=== PATIENT | male | born 1965 | race Caucasian/White ===

== ENCOUNTER 2016-08-05 12:02 | Emergency (ER) | payer OTHER ==
[~2016-08-05 12:02] MED LIST: CELE40TA; Celexa; GEOD20CA14; Geodon; KLON0.5T; PLAV75TA2; ZOCO40TA; klonopin; trazodone; zocor
[2016-08-05] MEDS ORDERED: ONDANSETRON 4MG/2ML VIAL (J2405) As Ordered ONE (12:54)
[2016-08-05] MEDS ORDERED: GASTROGRAFIN SOLUTION 30ML (Q9963) As Ordered ONE (12:54)
[2016-08-05] MEDS ORDERED: MORPHINE 4 MG/ML 1ML SYRINGE As Ordered ONE ×2 (12:55→15:24)
--- NOTE | 2016-08-05 13:19 | REP ---
Portable chest x-ray: Sitting AP view. History: Chest pain. Comparison chest x-ray July 26, 2014. Findings: The lungs are well inflated and clear. Heart is not enlarged. Pulmonary vasculature is not increased. Pleural angles are sharp. No significant bony abnormality is seen. Impression: Negative portable chest x-ray. Signed by Brian Montano MD 08/05/2016 01:57 P
[2016-08-05 13:47] LABS: ALBUMIN 4.1 GM/DL (3.2-5.2); ALBUMIN/GLOBULIN RATIO 1.08 (1.00-1.93); ALKALINE PHOSPHATASE 58 U/L (45-117); ALT/SGPT 31 U/L (12-78); ANION GAP 8 MEQ/L (8-16); AST/SGOT 12 U/L (15-37); BILIRUBIN,DIRECT 0.1 MG/DL (0.0-0.2); BILIRUBIN,TOTAL 0.9 MG/DL (0.2-1.0); BLOOD UREA NITROGEN 18 MG/DL (7-18); CARBON DIOXIDE LEVEL 22 MEQ/L (21-32); CHLORIDE LEVEL 110 MEQ/L (98-107); CREATININE FOR GFR 1.32 MG/DL (0.70-1.30); GLOMERULAR FILTRATION RATE > 60.0 (>56); GLUCOSE, FASTING 184 MG/DL (70-105); POTASSIUM SERUM 4.6 MEQ/L (3.5-5.1); SODIUM LEVEL 140 MEQ/L (136-145); TOTAL PROTEIN 7.9 GM/DL (6.4-8.2)
[2016-08-05] MEDS ORDERED: ISOVUE-370 76% 100ML VIAL (Q9967) As Ordered ONE (14:26)
[2016-08-05 14:55] LABS: BASO % 0.1 % (0.0-1.0); EOS % 0.1 % (0.0-3.0); LARGE UNSTAINED CELL # 0.1 K/mm3 (0.0-0.4); LARGE UNSTAINED CELL % 0.4 % (0.0-4.0); LYMPH # 0.3 K/mm3 (1.5-4.5); MEAN CORPUSCULAR HEMOGLOBIN 31.1 pg (27.0-33.0); MEAN CORPUSCULAR HGB CONC 33.7 g/dl (32.0-36.5); MEAN CORPUSCULAR VOLUME 92.1 fl (80.0-96.0); MONO # 0.3 K/mm3 (0.0-0.8); MONO % 2.5 % (0.0-5.0); NEUTROPHILS # 12.7 K/mm3 (1.8-7.7); NEUTROPHILS % 94.8 % (36.0-66.0); PLATELET COUNT, AUTOMATED 199 k/mm3 (150-450); RED CELL DISTRIBUTION WIDTH 12.2 % (11.5-14.5); WHITE BLOOD COUNT 13.4 K/mm3 (4.0-10.0)
--- NOTE | 2016-08-05 15:08 | REP ---
CT STUDY OF THE ABDOMEN AND PELVIS WITH IV AND ORAL CONTRAST: HISTORY: Abdominal pain. CT contrast dose: 100 mL of Isovue [address] FINDINGS: Digital preliminary load checker radiograph is unremarkable. The lung bases are clear. There is evidence of mild diffuse fatty infiltration of the liver. There is a tiny, 9 mm cyst in the dome of the right lobe of the liver. There is also a hypervascular lesion just beneath the liver capsule in the dome of the right lobe measuring 6 mm in diameter consistent with a hemangioma. No other focal liver lesion is seen. There is some fat sparing near the gallbladder. The spleen is unremarkable. No adrenal lesion is seen on either side. The pancreas shows no abnormality. No gallbladder abnormality is appreciated. The kidneys enhance symmetrically are morphologically intact. Normal caliber aorta is seen. No retroperitoneal mass or adenopathy is seen. A normal appendix is visible retrocecal. Small and large intestinal bowel loops are unremarkable. There is one dystrophic calcification in the prostate. Seminal vesicles and urinary bladder are unremarkable. No pelvic mass or adenopathy is seen. No abdominal wall defect is appreciated. Fairly heavy vascular calcification is seen. IMPRESSION: 1. Mild fatty infiltration of the liver. 2. Normal appendix. 3. Otherwise unremarkable CT abdomen and pelvis. Signed by Brian Montano MD 08/05/2016 03:59 P
--- NOTE | 2016-08-05 16:24 | EDDOCDS ---
Physician Documentation [facility] Name: Chencho Quinn Age: 50 yrs Sex: Male : 1965 Arrival Date: 08/05/2016 Time: 12:02 Bed 12 Private MD: Javier [facility] Disposition: 08/05/16 16:06 Discharged to Home/Self Care. Impression: Abdominal and pelvic pain, Nausea and vomiting. - Condition is Stable. - Discharge Instructions: Abdominal Pain, Adult, Diarrhea, Nausea and Vomiting. - Prescriptions for ZOFRAN ODT 4 mg - dissolve 1 tablet by ORAL route 4 times per day As needed do not chew, do not swallow whole; 10 tablet. - Work Release Form - 2 day, Medication Reconciliation, Local Pharmacy Hours form. - Follow up: [facility] Javier; When: 2 - 3 days; Reason: Recheck today's complaints. - Problem is new. - Symptoms have improved. - Notes: You were seen in the ED for abdominal pain, nausea, vomiting, and diarrhea. Bloodwork along with EKG of the heart and chest Xray showed no acute findings. CT scan of the abdomen showed fatty liver but no acute findings as well. As you are feeling better you may return home. Continue Tylenol and Ibuprofen as needed for pain and Zofran as needed for nausea. Encourage plenty of clear liquids, then advance your diet as tolerated. Call your doctor to arrange to be seen for a recheck this week as well.
Return to the ED for any worsening pain, fever, inability to tolerate oral foods or liquids, blood in the stool or vomit or any other concerns. Historical: - Allergies: No known drug Allergies; - Home Meds: 1. none - PMHx: CVA; - PSHx: none; - Social history: Smoking status: Patient uses tobacco products, heavy tobacco smoker. No barriers to communication noted, The patient speaks fluent Sami. - Family history: Not pertinent. - : The pt / caregiver states he / she is not on anticoagulants. Home medication list is obtained from the patient. - Exposure Risk Screening:: Recent exposure to and child are sick with the same symptoms. Vital Signs: 08/05 12:04 BP 131 / 101; Pulse 91; Resp 18; Temp 98.1(O); Pulse Ox 97% on R/A; Weight 99.79 kg / elp 220 lbs (R); Height 5 ft. 8 in. (172.72 cm) (R); 13:23 BP 113 / 63; Pulse 100; Resp 16; Temp 98.9(O); Pain 2/10; kr3 13:35 Pain 2/10; kr3 13:51 BP 107 / 60 (auto/); kr3 13:51 Pulse 104 MON; kr3 15:21 BP 123 / 74 (auto/); ld5 15:21 Pulse 106 MON; ld5 15:51 BP 126 / 76 (auto/); kr3 15:51 Pulse 114 MON; kr3 16:02 Pain 1/10; kr3 16:23 Temp 100(O); kr3 12:04 Body Mass Index 33.45 (99.79 kg, 172.72 cm) elp MDM: 12:43 IV Saline Lock ordered. br1 12:43 Tinning Equipment Tender/Pulse Ox/q 30 min VS ordered. br1 12:44 CBC with Diff Ordered. EDMS 12:44 BMP Ordered. EDMS 12:44 Liver Profile Ordered. EDMS 12:44 Lipase Ordered. EDMS 12:44 Troponin Ordered. EDMS 12:44 ECG WITH READING ER PHYS+CARDIAG ordered. EDMS 12:45 morphine 4 mg IVP once ordered. br1 12:45 Ondansetron 4 mg IVP once ordered. br1 12:45 NS 0.9% 1000 ml IV at 150 mL/hr continuous ordered. br1 12:46 Chest, 1 View Ordered. EDMS 12:46 CT ABD & PELVIS: IV and Oral Contrast Ordered. EDMS 12:51 -Influenza A&B Rapid Antigen - Nose Ordered. EDMS 12:51 Diatrizoate Meglumine & Sodium Liquid 10 ml PO once; mix in 290cc of water 1st cup rs3 13.05 2nd cup 13.35 ordered. 13:31 -Influenza A&B Rapid Antigen - Nose Reviewed. br1 13:40 [facility] Payment Agreement was scanned into [employer] and attached to record. jp5 13:40 Financial registration complete. jp5 13:56 BMP Reviewed. br1 13:56 Liver Profile Reviewed. br1 13:56 Lipase Reviewed. br1 13:56 Troponin Reviewed. br1 14:53 Fluid Challenge ordered. br1 15:04 CBC with Diff Reviewed. br1 15:04 Chest, 1 View Reviewed. br1 15:23 morphine 4 mg IVP once ordered. br1 Administered Medications: 13:08 Drug: Diatrizoate Meglumine & Sodium 10 ml [diatrizoate meglumine and diat.sodium 66 kr3 %-10 % oral solution (10 mL)] Route: PO; 13:09 Drug: morphine 4 mg [morphine 4 mg/mL intravenous cartridge (1 mL)] Route: IVP; Site: jjr right antecubital; 13:35 Follow up: Pain 2/10 Adult; Response: Pain is decreased kr3 13:09 Drug: Ondansetron 4 mg [ondansetron HCl 2 mg/mL intravenous solution (2 mL)] Route: jjr IVP; Site: right antecubital; 13:35 Follow up: Response: Nausea is decreased kr3 13:09 Drug: NS 0.9% 1000 ml [sodium chloride 0.9 % intravenous solution] Route: IV; Rate: 150 jjr mL/hr; Site: right antecubital; 16:02 Follow up: IV Status: Completed infusion; IV Intake: 1000ml kr3 15:30 Drug: morphine 4 mg [morphine 4 mg/mL intravenous cartridge (1 mL)] Route: IVP; Site: ld5 right antecubital; 16:02 Follow up: Pain 1 Adult kr3 Signatures: Dispatcher [employer] EDKaycee Christianson RN MANUEL kcs Aida Cortez RN RN kr3 Agus Medina MD MD br1 Lucy Ferguson RN RN rs3 Judson Mcgee jp5 Barbra Ceron RN jjr Candi Gordon RN ld5 The chart was reviewed and I authenticate all verbal orders and agree with the evaluation and treatment provided.Corrections: (The following items were deleted from the chart) 12:26 12:17 Exposure Risk Screening: None identified. viviana michelle Attachments: 13:40 [facility] Payment Agreement jp5 MTDD
--- NOTE | 2016-08-05 16:24 | EDDOCDS ---
Nurse's Notes [facility] Name: Chencho Quinn Age: 50 yrs Sex: Male : 1965 Arrival Date: 08/05/2016 Time: 12:02 Bed 12 Private MD: Javier [facility] Diagnosis: Abdominal and pelvic pain;Nausea and vomiting Presentation: 08/05 12:16 Presenting complaint: Patient states: since this am he has had abdominal cramps, kcs vomiting, diarrhea and chills. Adult Sepsis Screening: The patient does not have new or worsening altered mentation. Patient's respiratory rate is less than 22. Systolic blood pressure is greater than 100. Patient has a qSOFA score of 0- Negative Sepsis Screen. Suicide/Homicide risk assessment- the patient denies having any suicidal and/or homicidal ideations and does not present with any other emotional, behavioral or mental health complaints. Status: Patient is not a social services assistant or dependent. Transition of care: patient was not received from another setting of care. 12:16 Acuity: JAMI Level 3 kcs 12:16 Method Of Arrival: Walkin/Carried/Asstd kcs Triage Assessment: 12:17 General: Appears ill, well developed, well nourished, Behavior is cooperative, flat. kcs Pain: Location: abdomen Pain currently is 2 out of 10 on a pain scale. At worst was 10 out of 10 on a pain scale. HIV screening NA for this visit Offered previously. Neurological: Level of Consciousness is awake, alert. Respiratory: Airway is patent Respiratory effort is even, unlabored, Respiratory pattern is regular, symmetrical. Derm: Skin is intact, is healthy with good turgor, Skin is dry, Skin is normal. Historical: - Allergies: No known drug Allergies; - Home Meds: 1. none - PMHx: CVA; - PSHx: none; - Social history: Smoking status: Patient uses tobacco products, heavy tobacco smoker. No barriers to communication noted, The patient speaks fluent [place]. - Family history: Not pertinent. - : The pt / caregiver states he / she is not on anticoagulants. Home medication list is obtained from the patient. - Exposure Risk Screening:: Recent exposure to and child are sick with the same symptoms. Screenin:11 Infection Control. el 15:47 Screening information is obtained from the patient. Fall risk: No risks identified. kr3 Assistance ADL's: requires no assistance with activities of daily living. Abuse/DV Screen: The patient / caregiver reports he/she is: not in a situation that causes fear, pain or injury. Nutritional screening: No deficits noted. Advance Directives: Currently, there is no health care proxy. home support is adequate. Assessment: 12:42 General: Appears uncomfortable, Behavior is appropriate for age, cooperative. Pain: kr3 Location: abdomen Pain currently is 2 out of 10 on a pain scale. At worst was 10 out of 10 on a pain scale. Quality of pain is described as crampy. Neurological: No deficits noted. GI: Bowel sounds present X 4 quads. Abd is tender to palpation X 4 quads. Reports cramping, diarrhea, nausea, vomiting. Derm: Skin is normal. 13:23 Reassessment: Patient appears in no apparent distress at this time. Reassessment: kr3 tolerated CT contrast with no difficulty. General: Reports chills for. Pain: Location: abdomen Pain currently is 2 out of 10 on a pain scale. Quality of pain is described as crampy. Respiratory: Respiratory effort is even, unlabored. 14:18 Reassessment: Patient appears in no apparent distress at this time. General: Reports kr3 chills for. Pain: Pain currently is 2 out of 10 on a pain scale. 15:31 General: Pt reports 7/10 abdominal pain. Medicated per orders. Pt sipping on zuleima ld5 edgardo. Tolerating well. Call tucker within reach. Will continue to monitor. 16:02 Reassessment: Patient appears in no apparent distress at this time. resting with eyes kr3 closed. tolerated zuleima edgardo with no recurrence of vomiting. 16:09 Reassessment: Patient states feeling better. given second zuleima edgardo to drink. kr3 Vital Signs: 12:04 BP 131 / 101; Pulse 91; Resp 18; Temp 98.1(O); Pulse Ox 97% on R/A; Weight 99.79 kg elp (R); Height 5 ft. 8 in. (172.72 cm) (R); 13:23 BP 113 / 63; Pulse 100; Resp 16; Temp 98.9(O); Pain 2/10; kr3 13:35 Pain 2/10; kr3 13:51 BP 107 / 60 (auto/); kr3 13:51 Pulse 104 MON; kr3 15:21 BP 123 / 74 (auto/); ld5 15:21 Pulse 106 MON; ld5 15:51 BP 126 / 76 (auto/); kr3 15:51 Pulse 114 MON; kr3 16:02 Pain 07/13; kr3 16:23 Temp 100(O); kr3 12:04 Body Mass Index 33.45 (99.79 kg, 172.72 cm) elp Vitals: 12:04 Log In Time: August 05, 2016 at 11:50. elp ED Course: 12:03 Patient visited by Francine Lynn PCA. elp 12:03 Patient moved to Waiting elp 12:04 Javier [facility] is Private Physician. elp 12:05 Patient visited by Francine Lynn PCA. elp 12:12 Patient moved to Pre RCE elp 12:15 Patient visited by Francine Lynn PCA. elp 12:16 Triage Initiated kcs 12:30 Aida Cortez RN is Primary Nurse. kcs 12:30 Agus Medina MD is Attending Physician. br1 12:30 Patient moved to 12 kcs 12:42 Patient visited by Agus Medina MD. br1 12:42 Inserted saline lock: 20 gauge in right forearm The patient tolerated the procedure kr3 well. 12:43 The patient / caregiver is instructed regarding the plan of care and ED course. Patient joya has correct armband on for positive identification. Placed in gown. Bed in low position. Call light in reach. Side rails up X 1. 13:09 interior design principal on. Pulse ox on. NIBP on. jjr 13:19 Patient visited by Aida Cortez RN. kr3 13:34 Patient visited by Anjel Menchaca PCA. jrd 13:34 EKG done. (by ED staff). Reviewed by Agus Medina MD. jrd 13:40 [facility] Payment Agreement was scanned into [employer] and attached to record. jp5 13:49 Patient name changed from Chencho\S\J\S\Quinn\S\ to Chencho\S\Mu\S\Quinn. EDMS 14:07 Chest, 1 View Returned. EDMS 14:18 Patient visited by Aida Cortez RN. kr3 15:22 Patient visited by Agus Medina MD. br1 15:31 Patient visited by Candi Gordon RN. ld5 15:46 CT ABD & PELVIS: IV and Oral Contrast Returned. EDMS 15:47 PO fluids given. kr3 15:47 No procedures done that require assistance. kr3 16:01 Patient visited by Aida Cortez RN. kr3 16:06 Javier [facility] is Referral Physician. br1 16:22 Discontinued lock intact, bleeding controlled, pressure dressing applied, No kr3 redness/swelling at site. Administered Medications: 13:08 Drug: Diatrizoate Meglumine & Sodium 10 ml [diatrizoate meglumine and diat.sodium 66 kr3 %-10 % oral solution (10 mL)] Route: PO; 13:09 Drug: morphine 4 mg [morphine 4 mg/mL intravenous cartridge (1 mL)] Route: IVP; Site: jjr right antecubital; 13:35 Follow up: Pain 2/10 Adult; Response: Pain is decreased kr3 13:09 Drug: Ondansetron 4 mg [ondansetron HCl 2 mg/mL intravenous solution (2 mL)] Route: jjr IVP; Site: right antecubital; 13:35 Follow up: Response: Nausea is decreased kr3 13:09 Drug: NS 0.9% 1000 ml [sodium chloride 0.9 % intravenous solution] Route: IV; Rate: 150 jjr mL/hr; Site: right antecubital; 16:02 Follow up: IV Status: Completed infusion; IV Intake: 1000ml kr3 15:30 Drug: morphine 4 mg [morphine 4 mg/mL intravenous cartridge (1 mL)] Route: IVP; Site: ld5 right antecubital; 16:02 Follow up: Pain 1/10 Adult kr3 Intake: 16:02 IV: 1000.00ml; Total: 1000.00ml. kr3 Order Results: Lab Order: CBC with Diff; SPEC'M 08/05/16 14:14 Test: WHITE BLOOD COUNT; Value: 13.4; Range: 4.0-10.0; Abnormal: Above high normal; Units: K/mm3; Status: F Test: RED BLOOD COUNT; Value: 5.85; Range: 4.30-6.10; Units: M/mm3; Status: F Test: HEMOGLOBIN; Value: 18.2; Range: 14.0-18.0; Abnormal: Above high normal; Units: g/dl; Status: F Test: HEMATOCRIT; Value: 53.9; Range: 42.0-52.0; Abnormal: Above high normal; Units: %; Status: F Test: MEAN CORPUSCULAR VOLUME; Value: 92.1; Range: 80.0-96.0; Units: fl; Status: F Test: MEAN CORPUSCULAR HEMOGLOBIN; Value: 31.1; Range: 27.0-33.0; Units: pg; Status: F Test: MEAN CORPUSCULAR HGB CONC; Value: 33.7; Range: 32.0-36.5; Units: g/dl; Status: F Test: RED CELL DISTRIBUTION WIDTH; Value: 12.2; Range: 11.5-14.5; Units: %; Status: F Test: PLATELET COUNT, AUTOMATED; Value: 199; Range: 150-450; Units: k/mm3; Status: F Test: NEUTROPHILS %; Value: 94.8; Range: 36.0-66.0; Abnormal: Above high normal; Units: %; Status: F Test: LYMPH %; Value: 2.0; Range: 24.0-44.0; Abnormal: Below low normal; Units: %; Status: F Test: MONO %; Value: 2.5; Range: 0.0-5.0; Units: %; Status: F Test: EOS %; Value: 0.1; Range: 0.0-3.0; Units: %; Status: F Test: BASO %; Value: 0.1; Range: 0.0-1.0; Units: %; Status: F Test: LARGE UNSTAINED CELL %; Value: 0.4; Range: 0.0-4.0; Units: %; Status: F Test: NEUTROPHILS #; Value: 12.7; Range: 1.8-7.7; Abnormal: Above high normal; Units: K/mm3; Status: F Test: LYMPH #; Value: 0.3; Range: 1.5-4.5; Abnormal: Below low normal; Units: K/mm3; Status: F Test: MONO #; Value: 0.3; Range: 0.0-0.8; Units: K/mm3; Status: F Test: EOS #; Value: 0.0; Range: 0.0-0.50; Units: K/mm3; Status: F Test: BASO #; Value: 0.0; Range: 0.0-0.2; Units: K/mm3; Status: F Test: LARGE UNSTAINED CELL #; Value: 0.1; Range: 0.0-0.4; Units: K/mm3; Status: F Lab Order: BMP; SPEC'M 08/05/16 13:10 Test: GLUCOSE, FASTING; Value: 184; Range: 70-105; Abnormal: Above high normal; Units: MG/DL; Status: F Test: BLOOD UREA NITROGEN; Value: 18; Range: 7-18; Units: MG/DL; Status: F Test: CREATININE FOR GFR; Value: 1.32; Range: 0.70-1.30; Abnormal: Above high normal; Units: MG/DL; Status: F Test: GLOMERULAR FILTRATION RATE; Value: > 60.0; Range: >56; Status: F Test: SODIUM LEVEL; Value: 140; Range: 136-145; Units: MEQ/L; Status: F Test: POTASSIUM SERUM; Value: 4.6; Range: 3.5-5.1; Units: MEQ/L; Status: F Test: CHLORIDE LEVEL; Value: 110; Range: 98-107; Abnormal: Above high normal; Units: MEQ/L; Status: F Test: CARBON DIOXIDE LEVEL; Value: 22; Range: 21-32; Units: MEQ/L; Status: F Test: ANION GAP; Value: 8; Range: 8-16; Units: MEQ/L; Status: F Test: CALCIUM LEVEL; Value: 9.0; Range: 8.5-10.1; Units: MG/DL; Status: F Test Note: ; Units are mL/min/1.73 m2 Chronic Kidney Disease Staging per NKF: Stage I & II GFR >=60 Normal to Mildly Decreased Stage III GFR 30-59 Moderately Decreased Stage IV GFR 15-29 Severely Decreased Stage V GFR <15 Very Little GFR Left ESRD GFR <15 on TRANSITIONAL CARE NURSE Lab Order: Liver Profile; SPEC'M 08/05/16 13:10 Test: AST/SGOT; Value: 12; Range: 15-37; Abnormal: Below low normal; Units: U/L; Status: F Test: ALT/SGPT; Value: 31; Range: 12-78; Units: U/L; Status: F Test: ALKALINE PHOSPHATASE; Value: 58; Range: 45-117; Units: U/L; Status: F Test: BILIRUBIN,TOTAL; Value: 0.9; Range: 0.2-1.0; Units: MG/DL; Status: F Test: BILIRUBIN,DIRECT; Value: 0.1; Range: 0.0-0.2; Units: MG/DL; Status: F Test: TOTAL PROTEIN; Value: 7.9; Range: 6.4-8.2; Units: GM/DL; Status: F Test: ALBUMIN; Value: 4.1; Range: 3.2-5.2; Units: GM/DL; Status: F Test: ALBUMIN/GLOBULIN RATIO; Value: 1.08; Range: 1.00-1.93; Status: F Lab Order: Lipase; SPEC'M 08/05/16 13:10 Test: LIPASE; Value: 107; Range: 73-393; Units: U/L; Status: F Lab Order: Troponin; SPEC'M 08/05/16 13:10 Test: TROPONIN I; Value: < 0.02; Range: < 0.10; Units: NG/ML; Status: F Test Note: ; Troponin I Reference Interval for [place] LOCI: 99th Percentile= 0.00-0.045 ng/ml Risk Stratification: <= 0.10 ng/ml Decreased Risk for Adverse Clinical Events. 0.10-1.50 ng/ml Increased Risk for Adverse Clinical Events. Evaluation of additional criterion and/or repeat testing in 2-6 hours is suggested to rule out myocardial damage. >= 1.50 ng/ml Indicative of Myocardial Injury. Lab Order: -Influenza A&B Rapid Antigen - Nose; SPEC'M 08/05/16 12:57 Test: INFLUENZA A RAPID SCR by ICA; Value: INFLUENZA A RESULTS NEGATIVE; Status: F Test: INFLUENZA A RAPID SCR by ICA; Value: Comments:; Status: F Test: INFLUENZA B RAPID SCR by ICA; Value: INFLUENZA B RESULTS NEGATIVE; Status: F Test Note: ; The Influenza test is a direct rapid immunoassay for the qualitative detection of Influenza viral antigen. Cell culture (Viral Culture) testing should be considered to confirm NEGATIVE results and to assist in detecting other viruses that can provide similar clinical symptoms. Please contact the lab within 24 hours ([phone]) if confirmatory testing is desired. Radiology Order: Chest, 1 View Test: Chest, 1 View REASON FOR EXAMINATION: Chest Pain; Portable chest x-ray: Sitting AP view.; ; History: Chest pain.; ; Comparison chest x-ray July 26, 2014.; ; Findings: The lungs are well inflated and clear. Heart is not enlarged.; Pulmonary vasculature is not increased. Pleural angles are sharp. No; significant bony abnormality is seen.; ; Impression:; ; Negative portable chest x-ray.; ; ; Signed by; Brian Montano MD 08/05/2016 01:57 P; Radiology Order: CT ABD & PELVIS: IV and Oral Contrast Test: CT ABD & PELVIS: IV and Oral Contrast REASON FOR EXAMINATION: Abdomen Pain; CT STUDY OF THE ABDOMEN AND PELVIS WITH IV AND ORAL CONTRAST:; ; HISTORY: Abdominal pain.; ; CT contrast dose: 100 mL of Isovue 370 is administered intravenously.; ; CT FINDINGS: Digital preliminary green building materials distributor radiograph is unremarkable. The lung; bases are clear. There is evidence of mild diffuse fatty infiltration of the; liver. There is a tiny, 9 mm cyst in the dome of the right lobe of the liver.; There is also a hypervascular lesion just beneath the liver capsule in the dome; of the right lobe measuring 6 mm in diameter consistent with a hemangioma. No; other focal liver lesion is seen. There is some fat sparing near the; gallbladder. The spleen is unremarkable. No adrenal lesion is seen on either; side. The pancreas shows no abnormality. No gallbladder abnormality is; appreciated. The kidneys enhance symmetrically are morphologically intact.; Normal caliber aorta is seen. No retroperitoneal mass or adenopathy is seen. A; normal appendix is visible retrocecal. Small and large intestinal bowel loops; are unremarkable. There is one dystrophic calcification in the prostate.; Seminal vesicles and urinary bladder are unremarkable. No pelvic mass or; adenopathy is seen. No abdominal wall defect is appreciated. Fairly heavy; vascular calcification is seen.; ; IMPRESSION:; 1. Mild fatty infiltration of the liver.; 2. Normal appendix.; 3. Otherwise unremarkable CT abdomen and pelvis.; ; ; ; ; Unreviewed; Outcome: 15:47 CT Study completed. kr3 16:06 Discharge ordered by Provider. br1 16:22 Discharge Assessment: patient administered narcotics - yes. Pt provided with safe kr3 discharge. The following High Risk Discharge criteria are identified: None. Discharged to home ambulatory, with family. Condition: improved. Discharge instructions given to patient, Instructed on discharge instructions, follow up and referral plans. medication usage, diet, Demonstrated understanding of instructions, medications, Pt was receptive of discharge instructions/ teaching. Prescriptions given X 1. Property sent home with patient. 16:23 Work note provided to patient. kr3 16:23 Patient left the ED. kr3 Signatures: Dispatcher [employer] EDMS Kaycee Gleason RN RN kcs Aida CortezRN RN kr3 Agus Medina MD MD br1 Barbra Ceron, RN RN Candi GonzalezRN RN ld5 Francine Lynn, FOCUSING MACHINE OPERATOR FOCUSING MACHINE OPERATOR elp Anjel Menchaca, FOCUSING MACHINE OPERATOR FOCUSING MACHINE OPERATOR d Judson Mcgee jp5 Corrections: (The following items were deleted from the chart) 12:15 12:04 BP 131 / 101; Pulse 91bpm; Resp 18bpm; Pulse Ox 97% RA; 99.79 kg Reported; Height elp 5 ft. 8 in. Reported; BMI: 33.4; elp 12:26 12:17 Exposure Risk Screening: None identified. viviana michelle MTDD
--- NOTE | 2016-08-06 09:19 | ECGEPIP ---
Stationary ECG Study [facility] - ED Test Date: 2016-08-05 Pat Name: IRIS HAYES Department: Room: - Gender: M Manager Inventory: ara : 1965 Requested By: JOSE Iraheta Order Number: [id number] Reading MD: Monique Bansal Measurements Intervals Avery Rate: 100 P: 42 MA: 146 QRS: 39 QRSD: 97 T: 72 QT: 308 QTc: 398 Interpretive Statements SINUS TACHYCARDIA LOW QRS VOLTAGE IN EXTREMITY LEADS ABNORMAL RHYTHM ECG NSTTW ABNORMALITY NO PRIOR FOR COMPARISON Electronically Signed On 08-06-2016 9:19:05 EST by Monique Bansal
--- NOTE | 2016-08-07 17:24 | EDDOCDS ---
Physician Documentation [facility] Name: Chencho Quinn Age: 50 yrs Sex: Male : 1965 Arrival Date: 08/05/2016 Time: 12:02 Bed 12 Private MD: Javier [facility] Disposition: 08/05/16 16:06 Discharged to Home/Self Care. Impression: Abdominal and pelvic pain, Nausea and vomiting. - Condition is Stable. - Discharge Instructions: Abdominal Pain, Adult, Diarrhea, Nausea and Vomiting. - Prescriptions for ZOFRAN ODT 4 mg - dissolve 1 tablet by ORAL route 4 times per day As needed do not chew, do not swallow whole; 10 tablet. - Work Release Form - 2 day, Medication Reconciliation, Local Pharmacy Hours form. - Follow up: [facility] Javier; When: 2 - 3 days; Reason: Recheck today's complaints. - Problem is new. - Symptoms have improved. - Notes: You were seen in the ED for abdominal pain, nausea, vomiting, and diarrhea. Bloodwork along with EKG of the heart and chest Xray showed no acute findings. CT scan of the abdomen showed fatty liver but no acute findings as well. As you are feeling better you may return home. Continue Tylenol and Ibuprofen as needed for pain and Zofran as needed for nausea. Encourage plenty of clear liquids, then advance your diet as tolerated. Call your doctor to arrange to be seen for a recheck this week as well.
Return to the ED for any worsening pain, fever, inability to tolerate oral foods or liquids, blood in the stool or vomit or any other concerns. Historical: - Allergies: No known drug Allergies; - Home Meds: 1. none - PMHx: CVA; - PSHx: none; - Social history: Smoking status: Patient uses tobacco products, heavy tobacco smoker. No barriers to communication noted, The patient speaks fluent Korean. - Family history: Not pertinent. - : The pt / caregiver states he / she is not on anticoagulants. Home medication list is obtained from the patient. - Exposure Risk Screening:: Recent exposure to and child are sick with the same symptoms. Vital Signs: 08/05 12:04 BP 131 / 101; Pulse 91; Resp 18; Temp 98.1(O); Pulse Ox 97% on R/A; Weight 99.79 kg / elp 220 lbs (R); Height 5 ft. 8 in. (172.72 cm) (R); 13:23 BP 113 / 63; Pulse 100; Resp 16; Temp 98.9(O); Pain 2/10; kr3 13:35 Pain 2/10; kr3 13:51 BP 107 / 60 (auto/); kr3 13:51 Pulse 104 MON; kr3 15:21 BP 123 / 74 (auto/); ld5 15:21 Pulse 106 MON; ld5 15:51 BP 126 / 76 (auto/); kr3 15:51 Pulse 114 MON; kr3 16:02 Pain 1/10; kr3 16:23 Temp 100(O); kr3 12:04 Body Mass Index 33.45 (99.79 kg, 172.72 cm) elp MDM: 12:43 IV Saline Lock ordered. br1 12:43 Dry Cleaning Supervisor/Pulse Ox/q 30 min VS ordered. br1 12:44 CBC with Diff Ordered. EDMS 12:44 BMP Ordered. EDMS 12:44 Liver Profile Ordered. EDMS 12:44 Lipase Ordered. EDMS 12:44 Troponin Ordered. EDMS 12:44 ECG WITH READING ER PHYS+CARDIAG ordered. EDMS 12:45 morphine 4 mg IVP once ordered. br1 12:45 Ondansetron 4 mg IVP once ordered. br1 12:45 NS 0.9% 1000 ml IV at 150 mL/hr continuous ordered. br1 12:46 Chest, 1 View Ordered. EDMS 12:46 CT ABD & PELVIS: IV and Oral Contrast Ordered. EDMS 12:51 -Influenza A&B Rapid Antigen - Nose Ordered. EDMS 12:51 Diatrizoate Meglumine & Sodium Liquid 10 ml PO once; mix in 290cc of water 1st cup rs3 13.05 2nd cup 13.35 ordered. 13:31 -Influenza A&B Rapid Antigen - Nose Reviewed. br1 13:40 [facility] [place] Agreement was scanned into [employer] and attached to record. jp5 13:40 Financial registration complete. jp5 13:56 BMP Reviewed. br1 13:56 Liver Profile Reviewed. br1 13:56 Lipase Reviewed. br1 13:56 Troponin Reviewed. br1 14:53 Fluid Challenge ordered. br1 15:04 CBC with Diff Reviewed. br1 15:04 Chest, 1 View Reviewed. br1 15:23 morphine 4 mg IVP once ordered. br1 03 09:18 T-Sheet-- Draft Copy was scanned into [employer] and attached to record. gb 09:18 ECG/EKG was scanned into [employer] and attached to record. gb 09:18 Radiology Report was scanned into [employer] and attached to record. gb Administered Medications: 08/05 13:08 Drug: Diatrizoate Meglumine & Sodium 10 ml [diatrizoate meglumine and diat.sodium 66 kr3 %-10 % oral solution (10 mL)] Route: PO; 13:09 Drug: morphine 4 mg [morphine 4 mg/mL intravenous cartridge (1 mL)] Route: IVP; Site: jjr right antecubital; 13:35 Follow up: Pain 2/10 Adult; Response: Pain is decreased kr3 13:09 Drug: Ondansetron 4 mg [ondansetron HCl 2 mg/mL intravenous solution (2 mL)] Route: jjr IVP; Site: right antecubital; 13:35 Follow up: Response: Nausea is decreased kr3 13:09 Drug: NS 0.9% 1000 ml [sodium chloride 0.9 % intravenous solution] Route: IV; Rate: 150 jjr mL/hr; Site: right antecubital; 16:02 Follow up: IV Status: Completed infusion; IV Intake: 1000ml kr3 15:30 Drug: morphine 4 mg [morphine 4 mg/mL intravenous cartridge (1 mL)] Route: IVP; Site: ld5 right antecubital; 16:02 Follow up: Pain 1/10 Adult kr3 Signatures: Dispatcher [employer] EDMS Kaycee Gleason RN RN kcs Ml Mann, Reg Reg gb Aida CortezRN RN kr3 Agus Medina MD MD br1 Lucy FergusonRN RN rs3 Judson Mcgee jp5 Barbra Ceron RN jjr Candi Gordon RN ld5 The chart was reviewed and I authenticate all verbal orders and agree with the evaluation and treatment provided.Corrections: (The following items were deleted from the chart) 12:26 12:17 Exposure Risk Screening: None identified. viviana michelle Attachments: 13:40 [facility] Payment Agreement jp5 08/06 09:18 T-Sheet-- Draft Copy gb 09:18 ECG/EKG gb Chart Complete MTDD
--- NOTE | 2016-08-07 17:24 | EDDOCDS ---
Physician Documentation [facility] Name: Chencho Quinn Age: 50 yrs Sex: Male : 1965 Arrival Date: 08/05/2016 Time: 12:02 Bed 12 Private MD: [place] [facility] [place]position: 08/05/16 16:06 Discharged to Home/Self Care. Impression: Abdominal and pelvic pain, Nausea and vomiting. - Condition is Stable. - Discharge Instructions: Abdominal Pain, Adult, Diarrhea, Nausea and Vomiting. - Prescriptions for ZOFRAN ODT 4 mg - dissolve 1 tablet by ORAL route 4 times per day As needed do not chew, do not swallow whole; 10 tablet. - Work Release Form - 2 day, Medication Reconciliation, Local Pharmacy Hours form. - [place] [facility] [place]; When: 2 - 3 days; Reason: Recheck today's complaints. - Problem is new. - Symptoms have improved. - Notes: You were seen in the ED for abdominal pain, nausea, vomiting, and diarrhea. Bloodwork along with EKG of the heart and chest Xray showed no acute findings. CT scan of the abdomen showed fatty liver but no acute findings as well. As you are feeling better you may return home. Continue Tylenol and Ibuprofen as needed for pain and Zofran as needed for nausea. Encourage plenty of clear liquids, then advance your diet as tolerated. Call your doctor to arrange to be seen for a recheck this week as well.
Return to the ED for any worsening pain, fever, inability to tolerate oral foods or liquids, blood in the stool or vomit or any other concerns. Historical: - Allergies: No known drug Allergies; - Home Meds: 1. none - PMHx: CVA; - PSHx: none; - Social history: Smoking status: Patient uses tobacco products, heavy tobacco smoker. No barriers to communication noted, The patient speaks fluent Nepali. - Family history: Not pertinent. - : The pt / caregiver states he / she is not on anticoagulants. Home medication list is obtained from the patient. - Exposure Risk Screening:: Recent exposure to and child are sick with the same symptoms. Vital Signs: 08/05 12:04 BP 131 / 101; Pulse 91; Resp 18; Temp 98.1(O); Pulse Ox 97% on R/A; Weight 99.79 kg / elp 220 lbs (R); Height 5 ft. 8 in. (172.72 cm) (R); 13:23 BP 113 / 63; Pulse 100; Resp 16; Temp 98.9(O); Pain 2/10; kr3 13:35 Pain 2/10; kr3 13:51 BP 107 / 60 (auto/); kr3 13:51 Pulse 104 MON; kr3 15:21 BP 123 / 74 (auto/); ld5 15:21 Pulse 106 MON; ld5 15:51 BP 126 / 76 (auto/); kr3 15:51 Pulse 114 MON; kr3 16:02 Pain 1/10; kr3 16:23 Temp 100(O); kr3 12:04 Body Mass Index 33.45 (99.79 kg, 172.72 cm) elp MDM: 12:43 IV Saline Lock ordered. br1 12:43 Magician/Illusionist/Pulse Ox/q 30 min VS ordered. br1 12:44 CBC with Diff Ordered. EDMS 12:44 BMP Ordered. EDMS 12:44 Liver Profile Ordered. EDMS 12:44 Lipase Ordered. EDMS 12:44 Troponin Ordered. EDMS 12:44 ECG WITH READING ER PHYS+CARDIAG ordered. EDMS 12:45 morphine 4 mg IVP once ordered. br1 12:45 Ondansetron 4 mg IVP once ordered. br1 12:45 NS 0.9% 1000 ml IV at 150 mL/hr continuous ordered. br1 12:46 Chest, 1 View Ordered. EDMS 12:46 CT ABD & PELVIS: IV and Oral Contrast Ordered. EDMS 12:51 -Influenza A&B Rapid Antigen - Nose Ordered. EDMS 12:51 Diatrizoate Meglumine & Sodium Liquid 10 ml PO once; mix in 290cc of water 1st cup rs3 13.05 2nd cup 13.35 ordered. 13:31 -Influenza A&B Rapid Antigen - Nose Reviewed. br1 13:40 [facility] [place] Payment Agreement was scanned into [employer] and attached to record. jp5 13:40 Financial registration complete. jp5 13:56 BMP Reviewed. br1 13:56 Liver Profile Reviewed. br1 13:56 Lipase Reviewed. br1 13:56 Troponin Reviewed. br1 14:53 Fluid Challenge ordered. br1 15:04 CBC with Diff Reviewed. br1 15:04 Chest, 1 View Reviewed. br1 15:23 morphine 4 mg IVP once ordered. br1 03 09:18 T-Sheet-- Draft Copy was scanned into [employer] and attached to record. gb 09:18 ECG/EKG was scanned into [employer] and attached to record. gb 09:18 Radiology Report was scanned into [employer] and attached to record. gb Administered Medications: 08/05 13:08 Drug: Diatrizoate Meglumine & Sodium 10 ml [diatrizoate meglumine and diat.sodium 66 kr3 %-10 % oral solution (10 mL)] Route: PO; 13:09 Drug: morphine 4 mg [morphine 4 mg/mL intravenous cartridge (1 mL)] Route: IVP; Site: jjr right antecubital; 13:35 Follow up: Pain 2/10 Adult; Response: Pain is decreased kr3 13:09 Drug: Ondansetron 4 mg [ondansetron HCl 2 mg/mL intravenous solution (2 mL)] Route: jjr IVP; Site: right antecubital; 13:35 Follow up: Response: Nausea is decreased kr3 13:09 Drug: NS 0.9% 1000 ml [sodium chloride 0.9 % intravenous solution] Route: IV; Rate: 150 jjr mL/hr; Site: right antecubital; 16:02 Follow up: IV Status: Completed infusion; IV Intake: 1000ml kr3 15:30 Drug: morphine 4 mg [morphine 4 mg/mL intravenous cartridge (1 mL)] Route: IVP; Site: ld5 right antecubital; 16:02 Follow up: Pain 1/10 Adult kr3 Signatures: Dispatcher [employer] EDMS Kaycee Gleason RN RN kcs Ml Mann, Reg Reg gb Aida CortezRN RN kr3 Agus Medina MD MD br1 Lucy FergusonRN RN rs3 Judson Mcgee jp5 Barbra Ceron RN jjr Candi Gordon RN ld5 The chart was reviewed and I authenticate all verbal orders and agree with the evaluation and treatment provided.Corrections: (The following items were deleted from the chart) 12:26 12:17 Exposure Risk Screening: None identified. viviana michelle Attachments: 13:40 [facility] Payment Agreement jp5 08/06 09:18 T-Sheet-- Draft Copy gb 09:18 ECG/EKG gb Chart Complete MTDD
--- NOTE | 2016-08-07 17:24 | EDDOCDS ---
Nurse's Notes [facility] Name: Chencho Hayes Age: 50 yrs Sex: Male : 1965 Arrival Date: 08/05/2016 Time: 12:02 Bed 12 Private MD: Javier [facility] Diagnosis: Abdominal and pelvic pain;Nausea and vomiting Presentation: 08/05 12:16 Presenting complaint: Patient states: since this am he has had abdominal cramps, kcs vomiting, diarrhea and chills. Adult Sepsis Screening: The patient does not have new or worsening altered mentation. Patient's respiratory rate is less than 22. Systolic blood pressure is greater than 100. Patient has a qSOFA score of 0- Negative Sepsis Screen. Suicide/Homicide risk assessment- the patient denies having any suicidal and/or homicidal ideations and does not present with any other emotional, behavioral or mental health complaints. Status: Patient is not a rehabilitation services counselor or dependent. Transition of care: patient was not received from another setting of care. 12:16 Acuity: JAMI Level 3 kcs 12:16 Method Of Arrival: Walkin/Carried/Asstd kcs Triage Assessment: 12:17 General: Appears ill, well developed, well nourished, Behavior is cooperative, flat. kcs Pain: Location: abdomen Pain currently is 2 out of 10 on a pain scale. At worst was 10 out of 10 on a pain scale. HIV screening NA for this visit Offered previously. Neurological: Level of Consciousness is awake, alert. Respiratory: Airway is patent Respiratory effort is even, unlabored, Respiratory pattern is regular, symmetrical. Derm: Skin is intact, is healthy with good turgor, Skin is dry, Skin is normal. Historical: - Allergies: No known drug Allergies; - Home Meds: 1. none - PMHx: CVA; - PSHx: none; - Social history: Smoking status: Patient uses tobacco products, heavy tobacco smoker. No barriers to communication noted, The patient speaks fluent [place]ian. - Family history: Not pertinent. - : The pt / caregiver states he / she is not on anticoagulants. Home medication list is obtained from the patient. - Exposure Risk Screening:: Recent exposure to and child are sick with the same symptoms. Screenin:11 Infection Control. el 15:47 Screening information is obtained from the patient. Fall risk: No risks identified. kr3 Assistance ADL's: requires no assistance with activities of daily living. Abuse/DV Screen: The patient / caregiver reports he/she is: not in a situation that causes fear, pain or injury. Nutritional screening: No deficits noted. Advance Directives: Currently, there is no health care proxy. home support is adequate. Assessment: 12:42 General: Appears uncomfortable, Behavior is appropriate for age, cooperative. Pain: kr3 Location: abdomen Pain currently is 2 out of 10 on a pain scale. At worst was 10 out of 10 on a pain scale. Quality of pain is described as crampy. Neurological: No deficits noted. GI: Bowel sounds present X 4 quads. Abd is tender to palpation X 4 quads. Reports cramping, diarrhea, nausea, vomiting. Derm: Skin is normal. 13:23 Reassessment: Patient appears in no apparent distress at this time. Reassessment: kr3 tolerated CT contrast with no difficulty. General: Reports chills for. Pain: Location: abdomen Pain currently is 2 out of 10 on a pain scale. Quality of pain is described as crampy. Respiratory: Respiratory effort is even, unlabored. 14:18 Reassessment: Patient appears in no apparent distress at this time. General: Reports kr3 chills for. Pain: Pain currently is 2 out of 10 on a pain scale. 15:31 General: Pt reports 7/10 abdominal pain. Medicated per orders. Pt sipping on zuleima ld5 edgardo. Tolerating well. Call tucker within reach. Will continue to monitor. 16:02 Reassessment: Patient appears in no apparent distress at this time. resting with eyes kr3 closed. tolerated zuleima edgardo with no recurrence of vomiting. 16:09 Reassessment: Patient states feeling better. given second zuleima edgardo to drink. kr3 Vital Signs: 12:04 BP 131 / 101; Pulse 91; Resp 18; Temp 98.1(O); Pulse Ox 97% on R/A; Weight 99.79 kg elp (R); Height 5 ft. 8 in. (172.72 cm) (R); 13:23 BP 113 / 63; Pulse 100; Resp 16; Temp 98.9(O); Pain 2/10; kr3 13:35 Pain 2/10; kr3 13:51 BP 107 / 60 (auto/); kr3 13:51 Pulse 104 MON; kr3 15:21 BP 123 / 74 (auto/); ld5 15:21 Pulse 106 MON; ld5 15:51 BP 126 / 76 (auto/); kr3 15:51 Pulse 114 MON; kr3 16:02 Pain 07/13; kr3 16:23 Temp 100(O); kr3 12:04 Body Mass Index 33.45 (99.79 kg, 172.72 cm) elp Vitals: 12:04 Log In Time: August 05, 2016 at 11:50. elp ED Course: 12:03 Patient visited by Francine Lynn PCA. elp 12:03 Patient moved to Waiting elp 12:04 Javier [facility] is Private Physician. elp 12:05 Patient visited by Francine Lynn PCA. elp 12:12 Patient moved to Pre RCE elp 12:15 Patient visited by Francine Lynn PCA. elp 12:16 Triage Initiated kcs 12:30 Aida Cortez RN is Primary Nurse. kcs 12:30 Jose Medina MD is Attending Physician. br1 12:30 Patient moved to 12 kcs 12:42 Patient visited by Jose Medina MD. br1 12:42 Inserted saline lock: 20 gauge in right forearm The patient tolerated the procedure kr3 well. 12:43 The patient / caregiver is instructed regarding the plan of care and ED course. Patient joya has correct armband on for positive identification. Placed in gown. Bed in low position. Call light in reach. Side rails up X 1. 13:09 pipelayer on. Pulse ox on. NIBP on. jjr 13:19 Patient visited by Aida Cortez RN. kr3 13:34 Patient visited by Anjel Menchaca PCA. jrd 13:34 EKG done. (by ED staff). Reviewed by Jose Medina MD. jrd 13:40 [facility] Payment Agreement was scanned into [employer] and attached to record. jp5 13:49 Patient name changed from Chencho\S\J\S\Hayes\S\ to Chencho\S\Mu\S\Hayes. EDMS 14:07 Chest, 1 View Returned. EDMS 14:18 Patient visited by Aida Cortez RN. kr3 15:22 Patient visited by Jose Medina MD. br1 15:31 Patient visited by Candi Gordon RN. ld5 15:46 CT ABD & PELVIS: IV and Oral Contrast Returned. EDMS 15:47 PO fluids given. kr3 15:47 No procedures done that require assistance. kr3 16:01 Patient visited by Aida Cortez RN. kr3 16:06 Javier [facility] is Referral Physician. br1 16:22 Discontinued lock intact, bleeding controlled, pressure dressing applied, No kr3 redness/swelling at site. 0203 09:18 T-Sheet-- Draft Copy was scanned into [employer] and attached to record. gb 09:18 ECG/EKG was scanned into [employer] and attached to record. gb 09:18 Radiology Report was scanned into [employer] and attached to record. gb 09:55 EKG-ADULT Returned. EDMS Administered Medications: 08/05 13:08 Drug: Diatrizoate Meglumine & Sodium 10 ml [diatrizoate meglumine and diat.sodium 66 kr3 %-10 % oral solution (10 mL)] Route: PO; 13:09 Drug: morphine 4 mg [morphine 4 mg/mL intravenous cartridge (1 mL)] Route: IVP; Site: jjr right antecubital; 13:35 Follow up: Pain 2/10 Adult; Response: Pain is decreased kr3 13:09 Drug: Ondansetron 4 mg [ondansetron HCl 2 mg/mL intravenous solution (2 mL)] Route: jjr IVP; Site: right antecubital; 13:35 Follow up: Response: Nausea is decreased kr3 13:09 Drug: NS 0.9% 1000 ml [sodium chloride 0.9 % intravenous solution] Route: IV; Rate: 150 jjr mL/hr; Site: right antecubital; 16:02 Follow up: IV Status: Completed infusion; IV Intake: 1000ml kr3 15:30 Drug: morphine 4 mg [morphine 4 mg/mL intravenous cartridge (1 mL)] Route: IVP; Site: ld5 right antecubital; 16:02 Follow up: Pain 1/10 Adult kr3 Intake: 16:02 IV: 1000.00ml; Total: 1000.00ml. kr3 Order Results: Lab Order: CBC with Diff; SPEC'M 08/05/16 14:14 Test: WHITE BLOOD COUNT; Value: 13.4; Range: 4.0-10.0; Abnormal: Above high normal; Units: K/mm3; Status: F Test: RED BLOOD COUNT; Value: 5.85; Range: 4.30-6.10; Units: M/mm3; Status: F Test: HEMOGLOBIN; Value: 18.2; Range: 14.0-18.0; Abnormal: Above high normal; Units: g/dl; Status: F Test: HEMATOCRIT; Value: 53.9; Range: 42.0-52.0; Abnormal: Above high normal; Units: %; Status: F Test: MEAN CORPUSCULAR VOLUME; Value: 92.1; Range: 80.0-96.0; Units: fl; Status: F Test: MEAN CORPUSCULAR HEMOGLOBIN; Value: 31.1; Range: 27.0-33.0; Units: pg; Status: F Test: MEAN CORPUSCULAR HGB CONC; Value: 33.7; Range: 32.0-36.5; Units: g/dl; Status: F Test: RED CELL DISTRIBUTION WIDTH; Value: 12.2; Range: 11.5-14.5; Units: %; Status: F Test: PLATELET COUNT, AUTOMATED; Value: 199; Range: 150-450; Units: k/mm3; Status: F Test: NEUTROPHILS %; Value: 94.8; Range: 36.0-66.0; Abnormal: Above high normal; Units: %; Status: F Test: LYMPH %; Value: 2.0; Range: 24.0-44.0; Abnormal: Below low normal; Units: %; Status: F Test: MONO %; Value: 2.5; Range: 0.0-5.0; Units: %; Status: F Test: EOS %; Value: 0.1; Range: 0.0-3.0; Units: %; Status: F Test: BASO %; Value: 0.1; Range: 0.0-1.0; Units: %; Status: F Test: LARGE UNSTAINED CELL %; Value: 0.4; Range: 0.0-4.0; Units: %; Status: F Test: NEUTROPHILS #; Value: 12.7; Range: 1.8-7.7; Abnormal: Above high normal; Units: K/mm3; Status: F Test: LYMPH #; Value: 0.3; Range: 1.5-4.5; Abnormal: Below low normal; Units: K/mm3; Status: F Test: MONO #; Value: 0.3; Range: 0.0-0.8; Units: K/mm3; Status: F Test: EOS #; Value: 0.0; Range: 0.0-0.50; Units: K/mm3; Status: F Test: BASO #; Value: 0.0; Range: 0.0-0.2; Units: K/mm3; Status: F Test: LARGE UNSTAINED CELL #; Value: 0.1; Range: 0.0-0.4; Units: K/mm3; Status: F Lab Order: [facility]; SPEC'M 08/05/16 13:10 Test: GLUCOSE, FASTING; Value: 184; Range: 70-105; Abnormal: Above high normal; Units: MG/DL; Status: F Test: BLOOD UREA NITROGEN; Value: 18; Range: 7-18; Units: MG/DL; Status: F Test: CREATININE FOR GFR; Value: 1.32; Range: 0.70-1.30; Abnormal: Above high normal; Units: MG/DL; Status: F Test: GLOMERULAR FILTRATION RATE; Value: > 60.0; Range: >56; Status: F Test: SODIUM LEVEL; Value: 140; Range: 136-145; Units: MEQ/L; Status: F Test: POTASSIUM SERUM; Value: 4.6; Range: 3.5-5.1; Units: MEQ/L; Status: F Test: CHLORIDE LEVEL; Value: 110; Range: 98-107; Abnormal: Above high normal; Units: MEQ/L; Status: F Test: CARBON DIOXIDE LEVEL; Value: 22; Range: 21-32; Units: MEQ/L; Status: F Test: ANION GAP; Value: 8; Range: 8-16; Units: MEQ/L; Status: F Test: CALCIUM LEVEL; Value: 9.0; Range: 8.5-10.1; Units: MG/DL; Status: F Test Note: ; Units are mL/min/1.73 m2 Chronic Kidney Disease Staging per NKF: Stage I & II GFR >=60 Normal to Mildly Decreased Stage III GFR 30-59 Moderately Decreased Stage IV GFR 15-29 Severely Decreased Stage V GFR <15 Very Little GFR Left ESRD GFR <15 on POWDERED SUGAR SUPERVISOR Lab Order: Liver Profile; SPEC'M 08/05/16 13:10 Test: AST/SGOT; Value: 12; Range: 15-37; Abnormal: Below low normal; Units: U/L; Status: F Test: ALT/SGPT; Value: 31; Range: 12-78; Units: U/L; Status: F Test: ALKALINE PHOSPHATASE; Value: 58; Range: 45-117; Units: U/L; Status: F Test: BILIRUBIN,TOTAL; Value: 0.9; Range: 0.2-1.0; Units: MG/DL; Status: F Test: BILIRUBIN,DIRECT; Value: 0.1; Range: 0.0-0.2; Units: MG/DL; Status: F Test: TOTAL PROTEIN; Value: 7.9; Range: 6.4-8.2; Units: GM/DL; Status: F Test: ALBUMIN; Value: 4.1; Range: 3.2-5.2; Units: GM/DL; Status: F Test: ALBUMIN/GLOBULIN RATIO; Value: 1.08; Range: 1.00-1.93; Status: F Lab Order: Lipase; SPEC'M 08/05/16 13:10 Test: LIPASE; Value: 107; Range: 73-393; Units: U/L; Status: F Lab Order: Troponin; SPEC'M 08/05/16 13:10 Test: TROPONIN I; Value: < 0.02; Range: < 0.10; Units: NG/ML; Status: F Test Note: ; Troponin I Reference Interval for [place] LOCI: 99th Percentile= 0.00-0.045 ng/ml Risk Stratification: <= 0.10 ng/ml Decreased Risk for Adverse Clinical Events. 0.10-1.50 ng/ml Increased Risk for Adverse Clinical Events. Evaluation of additional criterion and/or repeat testing in 2-6 hours is suggested to rule out myocardial damage. >= 1.50 ng/ml Indicative of Myocardial Injury. Lab Order: -Influenza A&B Rapid Antigen - Nose; SPEC'M 08/05/16 12:57 Test: INFLUENZA A RAPID SCR by ICA; Value: INFLUENZA A RESULTS NEGATIVE; Status: F Test: INFLUENZA A RAPID SCR by ICA; Value: Comments:; Status: F Test: INFLUENZA B RAPID SCR by ICA; Value: INFLUENZA B RESULTS NEGATIVE; Status: F Test Note: ; The Influenza test is a direct rapid immunoassay for the qualitative detection of Influenza viral antigen. Cell culture (Viral Culture) testing should be considered to confirm NEGATIVE results and to assist in detecting other viruses that can provide similar clinical symptoms. Please contact the lab within 24 hours ([phone] if confirmatory testing is desired. 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; : 1965 Requested By: JOSE Iraheta; Order Number: [id number] Reading MD: Monique Bansal; Measurements; Intervals [place]; Rate: 100 P: 42; NM: 146 QRS: 39; QRSD: 97 T: 72; QT: 308; QTc: 398; Interpretive Statements; SINUS TACHYCARDIA; LOW QRS VOLTAGE IN EXTREMITY LEADS; ABNORMAL RHYTHM ECG; NSTTW ABNORMALITY; NO PRIOR FOR COMPARISON; Electronically Signed On 08-06-2016 9:19:05 EST by Monique Bansal; Radiology Order: Chest, 1 View Test: Chest, 1 View REASON FOR EXAMINATION: Chest Pain; Portable chest x-ray: Sitting AP view.; ; History: Chest pain.; ; Comparison chest x-ray July 26, 2014.; ; Findings: The lungs are well inflated and clear. Heart is not enlarged.; Pulmonary vasculature is not increased. Pleural angles are sharp. No; significant bony abnormality is seen.; ; Impression:; ; Negative portable chest x-ray.; ; ; Signed by; Brian Montano MD 08/05/2016 01:57 P; Radiology Order: CT ABD & PELVIS: IV and Oral Contrast Test: CT ABD & PELVIS: IV and Oral Contrast REASON FOR EXAMINATION: Abdomen Pain; CT STUDY OF THE ABDOMEN AND PELVIS WITH IV AND ORAL CONTRAST:; ; HISTORY: Abdominal pain.; ; CT contrast dose: 100 mL of Isovue 370 is administered intravenously.; ; CT FINDINGS: Digital preliminary assistant professor of nursing radiograph is unremarkable. The lung; bases are clear. There is evidence of mild diffuse fatty infiltration of the; liver. There is a tiny, 9 mm cyst in the dome of the right lobe of the liver.; There is also a hypervascular lesion just beneath the liver capsule in the dome; of the right lobe measuring 6 mm in diameter consistent with a hemangioma. No; other focal liver lesion is seen. There is some fat sparing near the; gallbladder. The spleen is unremarkable. No adrenal lesion is seen on either; side. The pancreas shows no abnormality. No gallbladder abnormality is; appreciated. The kidneys enhance symmetrically are morphologically intact.; Normal caliber aorta is seen. No retroperitoneal mass or adenopathy is seen. A; normal appendix is visible retrocecal. Small and large intestinal bowel loops; are unremarkable. There is one dystrophic calcification in the prostate.; Seminal vesicles and urinary bladder are unremarkable. No pelvic mass or; adenopathy is seen. No abdominal wall defect is appreciated. Fairly heavy; vascular calcification is seen.; ; IMPRESSION:; ; 1. Mild fatty infiltration of the liver.; ; 2. Normal appendix.; ; 3. Otherwise unremarkable CT abdomen and pelvis.; ; ; Signed by; Brian Montano MD 08/05/2016 03:59 P; Outcome: 15:47 CT Study completed. kr3 16:06 Discharge ordered by Provider. br1 16:22 Discharge Assessment: patient administered narcotics - yes. Pt provided with safe kr3 discharge. The following High Risk Discharge criteria are identified: None. Discharged to home ambulatory, with family. Condition: improved. Discharge instructions given to patient, Instructed on discharge instructions, follow up and referral plans. medication usage, diet, Demonstrated understanding of instructions, medications, Pt was receptive of discharge instructions/ teaching. Prescriptions given X 1. Property sent home with patient. 16:23 Work note provided to patient. kr3 16:23 Patient left the ED. kr3 Signatures: Dispatcher [employer] EDMS Kaycee Gleason RN RN [facility] Ml Mann, Mirza Reg Aida Henao RN RN kr3 Jose Medina MD MD br1 Barbra Ceron RN RN jjCandi AtkinsonRN RN ld5 Francine Lynn, FOUNDRY ENGINEER FOUNDRY ENGINEER elp Anjel Menchaca, FOUNDRY ENGINEER FOUNDRY ENGINEER jrd Judson Mcgee jp5 Corrections: (The following items were deleted from the chart) 12:15 12:04 BP 131 / 101; Pulse 91bpm; Resp 18bpm; Pulse Ox 97% RA; 99.79 kg Reported; Height elp 5 ft. 8 in. Reported; BMI: 33.4; elp 12:26 12:17 Exposure Risk Screening: None identified. kcs kcs Chart Complete MTDD
== END 2016-08-05 16:23 | disposition home or self-care (01) ==
LOC: M ED 12:02
DX: R11.2 Nausea with vomiting, unspecified (principal); R19.7 Diarrhea, unspecified; K76.0 Fatty (change of) liver, not elsewhere classified; R10.9 Unspecified abdominal pain; Z86.73 Personal history of transient ischemic attack (TIA), and cerebral infarction without residual deficits; F17.200 Nicotine dependence, unspecified, uncomplicated
CPT/HCPCS: 36415; 71010; 74177; 80048; 80076; 83690; 85025; 87804; 93005; 93041; 96361; 96374; 96375; 96376; 99285; J2405; Q9963; Q9967

== ENCOUNTER 2017-03-01 13:17 | Emergency (ER) | payer OTHER ==
[~2017-03-01] VITALS: Ht 172.7 cm; Wt 100.0 kg
[2017-03-01] MEDS ORDERED: NS 1,000 ML IV ONE (14:45)
[2017-03-01 15:11] LABS: BASO # 0.1 K/mm3 (0.0-0.2); BASO % 0.6 % (0.0-1.0); EOS # 0.2 K/mm3 (0.0-0.50); EOS % 1.5 % (0.0-3.0); LARGE UNSTAINED CELL # 0.1 K/mm3 (0.0-0.4); LARGE UNSTAINED CELL % 1.4 % (0.0-4.0); LYMPH % 28.2 % (24.0-44.0); MEAN CORPUSCULAR HEMOGLOBIN 31.3 pg (27.0-33.0); MEAN CORPUSCULAR HGB CONC 34.6 g/dl (32.0-36.5); MEAN CORPUSCULAR VOLUME 90.5 fl (80.0-96.0); MONO # 0.4 K/mm3 (0.0-0.8); MONO % 4.2 % (0.0-5.0); NEUTROPHILS # 6.5 K/mm3 (1.8-7.7); NEUTROPHILS % 64.2 % (36.0-66.0); PLATELET COUNT, AUTOMATED 256 k/mm3 (150-450); RED CELL DISTRIBUTION WIDTH 12.6 % (11.5-14.5); WHITE BLOOD COUNT 10.1 K/mm3 (4.0-10.0)
[2017-03-01] MEDS ORDERED: MORPHINE 4 MG/ML 1ML SYRINGE IV ONE (15:15)
[2017-03-01] MEDS ORDERED: ONDANSETRON 4MG/2ML VIAL (J2405) IV ONE (15:15)
[2017-03-01 15:16] LABS: INR 0.96
[2017-03-01 15:41] LABS: ALBUMIN 4.3 GM/DL (3.2-5.2); ALBUMIN/GLOBULIN RATIO 1.34 (1.00-1.93); ALKALINE PHOSPHATASE 55 U/L (45-117); ALT/SGPT 34 U/L (12-78); ANION GAP 9 MEQ/L (8-16); AST/SGOT 17 U/L (15-37); BILIRUBIN,DIRECT < 0.1 MG/DL (0.0-0.2); BILIRUBIN,TOTAL 0.5 MG/DL (0.2-1.0); BLOOD UREA NITROGEN 14 MG/DL (7-18); CALCIUM LEVEL 9.3 MG/DL (8.5-10.1); CARBON DIOXIDE LEVEL 26 MEQ/L (21-32); CHLORIDE LEVEL 107 MEQ/L (98-107); CREATININE FOR GFR 1.05 MG/DL (0.70-1.30); GLOMERULAR FILTRATION RATE > 60.0 (>56); GLUCOSE, FASTING 89 MG/DL (70-105); POTASSIUM SERUM 4.3 MEQ/L (3.5-5.1); SODIUM LEVEL 142 MEQ/L (136-145); TOTAL PROTEIN 7.5 GM/DL (6.4-8.2)
[2017-03-01] MEDS ORDERED: ISOVUE-370 76% 100ML VIAL (Q9967) As Ordered ONE (15:51)
--- NOTE | 2017-03-01 16:03 | REP ---
Duplex extremity venous ultrasound: Left lower extremity. History: Left calf pain. Findings: The deep veins are anechoic and fully compressible from the groin to the popliteal fossa in the left lower extremity. Color flow imaging is homogeneous. Spectral Doppler interrogation demonstrates intact respiratory variation in flow and normal manual augmentation of flow. There is no evidence of deep vein thrombosis. Impression: Negative left lower extremity duplex venous ultrasound. No evidence of deep vein thrombosis. Signed by Brian Montano MD 03/01/2017 03:55 P
[2017-03-01] MEDS ORDERED: ROBA500T PO (16:25)
[2017-03-01] MEDS ORDERED: IBUP80TA PO (16:25)
--- NOTE | 2017-03-01 16:26 | REP ---
CT pulmonary angiogram: With IV contrast: History: Right scapular pain. Question DVT. Comparison studies: Comparison chest CT study 04/27/2005. Contrast dose: 75 cc's of Isovue [address] technique: Helical scanning is acquired and overlapping 1.5 mm and contiguous 3 mm axial images are reformatted. In addition, a 3-D work station is deployed to generate thick slab maximum intensity projection images in sagittal and coronal imaging projections. CT pulmonary angiographic findings: There is good opacification of the pulmonary arterial tree. There is no CT evidence of pulmonary embolism. The thoracic aorta enhances homogeneously and is normal in caliber and course. No hilar or mediastinal mass or adenopathy is observed. The lung window settings show no evidence of infiltrate, significant atelectasis, pulmonary nodule or mass lesion. No bony destructive lesion is seen. Impression: No CT evidence of pulmonary embolus. Unremarkable CT pulmonary angiogram. Signed by Brian Montano MD 03/01/2017 05:22 P
[2017-03-01] MEDS ORDERED: IBUPROFEN 800 MG TAB PO ONE (16:30)
[2017-03-01] MEDS ORDERED: METHOCARBAMOL 500 MG TAB PO ONE (16:30)
[2017-03-01 16:45] VITALS: BP 129/80
--- NOTE | 2017-03-03 08:57 | ECGEPIP ---
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
== END 2017-03-01 16:47 | disposition home or self-care (01) ==
LOC: M ED 13:17
DX: S29.012A Strain of muscle and tendon of back wall of thorax, initial encounter (principal); X58.XXXA Exposure to other specified factors, initial encounter; Y92.89 Other specified places as the place of occurrence of the external cause; Y93.89 Activity, other specified; Y99.8 Other external cause status; R05 Cough; M79.662 Pain in left lower leg; F41.9 Anxiety disorder, unspecified; F43.10 Post-traumatic stress disorder, unspecified; G47.33 Obstructive sleep apnea (adult) (pediatric); Z86.73 Personal history of transient ischemic attack (TIA), and cerebral infarction without residual deficits; Z87.891 Personal history of nicotine dependence; Z88.6 Allergy status to analgesic agent
CPT/HCPCS: 71275; 80048; 80076; 85025; 85610; 85730; 93005; 93971; 96374; 96375; 99283; J2405; Q9967

== ENCOUNTER 2018-02-20 11:35 | Emergency (ER) | payer OTHER ==
[2018-02-20 12:52] LABS: ALBUMIN 3.8 GM/DL (3.2-5.2); ALBUMIN/GLOBULIN RATIO 0.95 (1.00-1.93); ALKALINE PHOSPHATASE 65 U/L (45-117); ALT/SGPT 32 U/L (12-78); ANION GAP 10 MEQ/L (8-16); AST/SGOT 15 U/L (7-37); BILIRUBIN,DIRECT < 0.1 MG/DL (0.0-0.2); BILIRUBIN,TOTAL 0.4 MG/DL (0.2-1.0); BLOOD UREA NITROGEN 12 MG/DL (7-18); CALCIUM LEVEL 8.7 MG/DL (8.5-10.1); CARBON DIOXIDE LEVEL 25 MEQ/L (21-32); CHLORIDE LEVEL 105 MEQ/L (98-107); CPK CREATINE PHOSPHOKINASE 111 U/L (39-308); CREATININE FOR GFR 1.07 MG/DL (0.70-1.30); GLOMERULAR FILTRATION RATE > 60.0 (>56); GLUCOSE, FASTING 105 MG/DL (70-100); LIPASE 425 U/L (73-393); POTASSIUM SERUM 4.2 MEQ/L (3.5-5.1); SODIUM LEVEL 140 MEQ/L (136-145); TOTAL PROTEIN 7.8 GM/DL (6.4-8.2); TROPONIN I < 0.02 NG/ML (< 0.10)
[2018-02-20 12:59] LABS: BASO % 0.4 % (0.0-1.0); EOS # 0.1 10^3/uL (0.0-0.50); EOS % 0.8 % (0.0-3.0); HEMATOCRIT 51.1 % (42.0-52.0); HEMOGLOBIN 17.7 g/dl (13.5-17.5); IMMATURE GRANULOCYTE % 0.9 % (0-3.0); LYMPH % 27.4 % (24.0-44.0); MEAN CORPUSCULAR HEMOGLOBIN 31.3 pg (27.0-33.0); MEAN CORPUSCULAR HGB CONC 34.6 g/dl (32.0-36.5); MEAN CORPUSCULAR VOLUME 90.3 fl (80.0-96.0); MONO # 0.6 10^3/uL (0.0-0.8); MONO % 5.3 % (0.0-5.0); NEUTROPHILS # 7.2 10^3/uL (1.8-7.7); NEUTROPHILS % 65.2 % (36.0-66.0); PLATELET COUNT, AUTOMATED 270 10^3/uL (150-450); RED BLOOD COUNT 5.66 10^6/uL (4.30-6.10)
[2018-02-20] MEDS ORDERED: ISOVUE-370 76% 100ML VIAL (Q9967) As Ordered (12:59)
[2018-02-20] MEDS: ASPIRIN 81 MG CHEW TABLET PO (13:00)
[2018-02-20 13:11] LABS: INR 0.93; PROTHROMBIN TIME 12.6 SECONDS (12.1-14.4)
[2018-02-20] MEDS: ONDANSETRON 4MG/2ML VIAL (J2405) IV (13:57)
[2018-02-20] MEDS: MORPHINE 4 MG/ML 1ML VIAL/SYRINGE (J2270) IV ×2 (14:30→18:43)
[2018-02-20 18:12] LABS: CK-MB VALUE MASS 1.2 NG/ML (<3.6); CPK CREATINE PHOSPHOKINASE 100 U/L (39-308); TROPONIN I < 0.02 NG/ML (< 0.10)
== END 2018-02-20 19:10 | disposition home or self-care (01) ==
LOC: M ED 11:35
DX: R07.9 Chest pain, unspecified (principal); R94.31 Abnormal electrocardiogram [ECG] [EKG]; I10 Essential (primary) hypertension; E78.5 Hyperlipidemia, unspecified; F17.200 Nicotine dependence, unspecified, uncomplicated; Z86.73 Personal history of transient ischemic attack (TIA), and cerebral infarction without residual deficits; Z79.899 Other long term (current) drug therapy
CPT/HCPCS: J2270

== ENCOUNTER → 2018-09-14 | Outpatient (REF) | payer OTHER ==
[~2018-09-14] MED LIST changes: +IBUP80TA PO; +ROBA500T PO; +TRAM50TA2
[2018-09-14 20:12] LABS: APPEARANCE, URINE CLEAR (CLEAR); BACTERIA, URINE AUTO NEGATIVE (NEGATIVE); BILIRUBIN, URINE AUTO NEGATIVE (NEGATIVE); BLOOD, URINE BLOOD NEGATIVE (NEGATIVE); COLOR, URINE YELLOW (YELLOW); GLUCOSE, URINE (UA) AUTO NEGATIVE (NEGATIVE); KETONE, URINE AUTO TRACE mg/dL (NEGATIVE); LEUKOCYTE ESTERASE, URINE AUTO NEGATIVE (NEGATIVE); MUCUS, URINE SMALL (NEGATIVE); NITRITE, URINE AUTO NEGATIVE (NEGATIVE); PROTEIN, URINE AUTO NEGATIVE (NEGATIVE); RBC, URINE AUTO 1 /HPF (0-3); SPECIFIC GRAVITY URINE AUTO 1.027 (1.002-1.035); SQUAMOUS EPITHELIAL CELL UR AU 0 /HPF (0-6); WBC, URINE AUTO 0 /HPF (0-3)
== END ==
LOC: M SMT 17:34
PROVIDERS: ATTEND Nurse Practitioner Family
DX: R39.15 Urgency of urination (principal)

== ENCOUNTER 2018-11-25 16:40 | Emergency (ER) | payer OTHER ==
[~2018-11-25] VITALS: Ht 172.7 cm; Wt 106.9 kg
--- NOTE | 2018-11-25 17:11 | REP ---
Clinical: Cough and dyspnea . Comparison: 02/20/2018 . Technique: PA and lateral. Findings: The mediastinum and cardiac silhouette are normal. The lung millard are clear and without acute consolidation, effusion, or pneumothorax. The skeletal structures are intact and normal. Impression: 1. No acute cardiopulmonary process. Electronically Signed by Joe Jimenez MD 11/25/2018 05:02 P
[2018-11-25 17:27] LABS: BASO % 0.4 % (0.0-1.0); EOS # 0.2 10^3/uL (0.0-0.50); EOS % 1.7 % (0.0-3.0); HEMATOCRIT 46.6 % (42.0-52.0); HEMOGLOBIN 15.8 g/dl (13.5-17.5); LYMPH # 2.7 10^3/uL (1.5-4.5); LYMPH % 28.1 % (24.0-44.0); MEAN CORPUSCULAR HEMOGLOBIN 31.5 pg (27.0-33.0); MEAN CORPUSCULAR HGB CONC 33.9 g/dl (32.0-36.5); MONO # 0.7 10^3/uL (0.0-0.8); MONO % 7.1 % (0.0-5.0); NEUTROPHILS % 61.9 % (36.0-66.0); PLATELET COUNT, AUTOMATED 226 10^3/uL (150-450); RED BLOOD COUNT 5.01 10^6/uL (4.30-6.10); WHITE BLOOD COUNT 9.8 10^3/uL (4.0-10.0)
[2018-11-25] MEDS ORDERED: TAMS1CAP17 PO (17:33)
[2018-11-25] MEDS ORDERED: KETOROLAC 60 MG/2 ML VIAL (J1885) IM ONE (18:00)
[2018-11-25] MEDS ORDERED: predniSONE 20 MG TAB PO ONE (18:00)
[2018-11-25] MEDS ORDERED: ALBUTEROL 90 MCG/ACT 8GM HFA INHALER INH ONE (18:00)
[2018-11-25 18:10] LABS: BLOOD UREA NITROGEN 17 MG/DL (7-18); CALCIUM LEVEL 8.3 MG/DL (8.5-10.1); CARBON DIOXIDE LEVEL 30 MEQ/L (21-32); CHLORIDE LEVEL 106 MEQ/L (98-107); GLOMERULAR FILTRATION RATE > 60.0 (>56); GLUCOSE, FASTING 99 MG/DL (70-100); SODIUM LEVEL 142 MEQ/L (136-145)
[2018-11-25] MEDS ORDERED: PRED20TA PO (18:33)
[2018-11-25] MEDS ORDERED: ROBA500T PO (18:33)
[2018-11-25] MEDS ORDERED: TUSS1SUS2 PO (18:33)
[2018-11-25] MEDS ORDERED: MUCI600T31 PO (18:33)
[2018-11-25] MEDS ORDERED: VENTAER INH (18:34)
[2018-11-25 18:38] VITALS: BP 133/59
== END 2018-11-25 19:05 | disposition home or self-care (01) ==
LOC: M ED 16:40
DX: J44.0 Chronic obstructive pulmonary disease with (acute) lower respiratory infection (principal); E78.5 Hyperlipidemia, unspecified; Z86.73 Personal history of transient ischemic attack (TIA), and cerebral infarction without residual deficits; Z87.891 Personal history of nicotine dependence; Z79.899 Other long term (current) drug therapy
CPT/HCPCS: 71046; 80048; 85025; 94640; 94664; 96372; 99284; J1885